=== PATIENT | female | born 1990 | race African-American/Black ===

== ENCOUNTER 2019-10-14 13:10 | Emergency (ER) | payer BC, OTHER ==
[2019-10-14 14:32] VITALS: BP 107/59
--- NOTE | 2019-10-14 14:58 | UC ---
Complaint Female HPI - HPI Summary HPI Summary: 28-year-old black female presents with urinary frequency and dysuria at the end avoid 2 days. - History Of Current Complaint Chief Complaint: UCGU Stated Complaint: URINARY Time Seen by Provider: 10/14/19 14:09 Hx Obtained From: Patient Hx Last Menstrual Period: IUD Onset/Duration: Lasting Days Timing: Lasting Days Severity Initially: Moderate Severity Currently: Moderate Pain Intensity: 0 - Allergies/Home Medications Allergies/Adverse Reactions: Allergies Allergy/AdvReac Type Severity Reaction Status Date / Time No Known Allergies Allergy Verified 10/14/19 14:25 Home Medications: Home Medications Amoxicillin PO (*) [Amoxicillin 500 MG CAP*] 1 tab TID 10/14/19 [History Confirmed 10/14/19] Naproxen Sodium [Naproxen Sodium 500 MG TAB] 1 tab BID PRN 10/14/19 [History Confirmed 10/14/19] PMH/Surg Hx/FS Hx/Imm Hx Previously Healthy: Yes - Surgical History Surgical History: None - Family History Known Family History: Positive: None - Social History Alcohol Use: Occasionally Substance Use Type: None Smoking Status (MU): Never Smoked Tobacco Review of Systems All Other Systems Reviewed And Are Negative: Yes Constitutional: Positive: Negative Skin: Positive: Negative Eyes: Positive: Negative ENT: Positive: Negative Respiratory: Positive: Negative Cardiovascular: Positive: Negative Gastrointestinal: Positive: Negative Genitourinary: Positive: Dysuria, Frequency, Urgency Physical Exam - Summary Physical Exam Summary: Appearance: Positive: No Pain Distress Skin: Positive: Warm Head/Face: Positive: Normal Head/Face Inspection Eyes: :Normal ENT: Normal ENT inspection Neck: Positive: Supple Respiratory/Lung Sounds: Positive: Clear to Auscultation. Negative: Rales, Rhonchi, Wheezes Cardiovascular: Positive: Normal, RRR, S1, S2 Abdomen : soft, NO CVA tenderness Musculoskeletal: Positive: Normal, Strength/ROM Intact Neurological: Positive: CN 2-12 grossly intact Vital Signs: Initial Vital Signs Temp 36.9 C 10/14/19 14:27 Pulse 78 10/14/19 14:27 Resp 16 10/14/19 14:27 BP 107/59 10/14/19 14:27 Pulse Ox 98 10/14/19 14:27 Complaint Female Dx - Course Course Of Treatment: UA positive for LE, blood - Differential Dx/Diagnosis Provider Diagnosis: UTI (urinary tract infection) Discharge ED - Sign-Out/Discharge Documenting (check all that apply): Patient Departure All imaging exams completed and their final reports reviewed: No Studies - Discharge Plan Condition: Stable Disposition: HOME Prescriptions: Sulfamethox/Trimethoprim DS* [Bactrim DS 800/160 TAB*] 1 tab PO BID 7 Days #14 tab Referrals: MENDOZA Osullivan [Primary Care Provider] - - Billing Disposition and Condition Condition: STABLE Disposition: Home
== END 2019-10-14 15:20 | disposition home or self-care (01) ==
LOC: UCCORT 13:10
DX: N39.0 Urinary tract infection, site not specified (principal)
CPT/HCPCS: 81003; 87086; 99212; G0463